=== PATIENT | male | born 1950 | race Caucasian/White ===

== ENCOUNTER → 2016-12-23 | Outpatient (CLI) | payer MEDICARE, BC ==
--- OUTSIDE RECORDS SUMMARY | 2016-12-23 12:47 | XMS REPORT | Continuity of Care Document ---
Author Author [facility] Organization [facility] Address Unknown Phone Unavailable Allergies Medications Problems Date Dx Coded Attending Type Code Diagnosis Diagnosed By 02/17/2016 LATONIA KINNEY SCRATCHER Ot D72.829 02/18/2016 LATONIA KINNEY SCRATCHER Ot D72.829 02/18/2016 LATONIA KINNEY SCRATCHER Ot D72.829 02/22/2016 LATONIA KINNEY SCRATCHER Ot D72.829 03/03/2016 LATONIA KINNEY SCRATCHER Ot D72.829 ELEVATED WHITE BLOOD CELL COUNT, UNSPECI 03/09/2016 LATONIA KINNEY SCRATCHER Ot D72.829 ELEVATED WHITE BLOOD CELL COUNT, UNSPECI 03/23/2016 LATONIA KINNEY SCRATCHER Ot D72.829 ELEVATED WHITE BLOOD CELL COUNT, UNSPECI 03/24/2016 S[place]A WADE MD Ot D72.820 LYMPHOCYTOSIS (SYMPTOMATIC) 04/21/2016 S[place]A WADE MD Ot D72.820 LYMPHOCYTOSIS (SYMPTOMATIC) 05/28/2016 SANTA WADE MD Ot D72.820 LYMPHOCYTOSIS (SYMPTOMATIC) 12/23/2016 LATONIA KINNEYP Ot D72.829 ELEVATED WHITE BLOOD CELL COUNT, UNSPECI 12/23/2016 LATONIA KINNEY SCRATCHER Ot D72.829 ELEVATED WHITE BLOOD CELL COUNT, UNSPECI 12/23/2016 S[place]A WADE MD Ot D72.820 LYMPHOCYTOSIS (SYMPTOMATIC) Procedures Results Encounters ACCT No. Visit Date/Time Discharge Status Pt. Type Provider Facility Loc./Unit Complaint [id number] 12/23/2016 12:31:00 ACT Outpatient SANTA WADE MD [facility] RAD ABD PAIN [id number] 03/23/2016 19:10:00 ACT Outpatient S[place]A WADE MD [facility] LAB LYMPHOCYTOSIS EOSINOPHILIA [id number] 03/02/2016 14:22:00 ACT Outpatient LATONIA KINNEY [facility] LAB ABNORMAL CBC, ELEVATED WBC [id number] 02/16/2016 11:49:00 ACT Outpatient LATONIA KINNEY [facility] LAB ELEVATED WBC
--- NOTE | 2016-12-23 13:16 | Diagnostic Imaging Report ---
PROCEDURE: US Gallbladder. TECHNIQUE: Multiple real-time grayscale images were obtained over the right upper quadrant in various projections. INDICATION: Right upper quadrant pain. FINDINGS: The liver is hyperechoic and dense with no definite underlying lesion seen. It is mildly enlarged measuring 21 cm in craniocaudal measurement. The CBD is obscured. No definite evidence of intrahepatic biliary dilatation. The gallbladder demonstrates no stones or wall thickening. No pericholecystic fluid. The pancreas is obscured. The right kidney is 11.9 cm in length with no hydronephrosis or focal lesion. No fluid collection or ascites is seen. Sonographic Navarro sign is negative. IMPRESSION: Enlarged fatty liver. No gallstones or evidence of cholecystitis. Dictated by: Dictated on workstation # [id number]
== END ==
LOC: RAD 12:31
PROVIDERS: ATTEND Family Medicine
DX: K76.0 Fatty (change of) liver, not elsewhere classified (principal); R16.0 Hepatomegaly, not elsewhere classified; R10.11 Right upper quadrant pain
CPT/HCPCS: 76705